=== PATIENT | female | born 1935 | race Caucasian/White ===

== ENCOUNTER → 2022-11-18 | Outpatient (CLI) | payer MEDICARE ==
--- NOTE | 2022-11-18 11:38 | BD ---
EXAMINATION TYPE: Axial Bone Density DATE OF EXAM: 11/18/2022 CLINICAL HISTORY: 87 years old Female. 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 Bone mineral density as measured about the Lumbar spine is: ----- L1-L4(G/cm2): 1.428 T Score Values are as follows: ----- L1: -0.1 ----- L2: 0.0 ----- L3: 3.8 ----- L4: 2.8 ----- L1-L4: 2.1 Z Score Values are as follows: ----- L1: 1.4 ----- L2: 1.5 ----- L3: 5.3 ----- L4: 4.3 ----- L1-L4: 3.5 Bone mineral density is her first bone density at [facility] Bone mineral density about the L Wrist (g/cm2): 0.531 T Score values are as follows: -----Dist. R+U: 0.1 -----Prox. R+U: -0.9 -----Radius total: -2.0 Z Score values are as follows: -----Dist. R+U: 3.5 -----Prox. R+U: 2.4 -----Radius total: 1.3 Bone mineral density first dexa study at [facility] FRAX%s: NO FRAX, HIPS NOT SCANNED, BILAT THRS IMPRESSION: Osteopenia (T Score between -2.5 and -1). There is slightly increased risk of fracture and the patient may be considered for treatment. Re-Screen 2-5 years. NOTE: T-SCORE=SD OF THE YOUNG ADULT MEAN.
--- NOTE | 2022-11-27 15:17 | MM ---
Reason for Exam: Screening (asymptomatic). Last mammogram was performed 2 year(s) and 0 month(s) ago. Patient History: Menarche at age 13. Prior Study Comparison: 11/01/2019 Bilateral Screening Mammogram, [facility]. 11/14/2020 Bilateral Screening Mammogram, [facility]. Tissue Density: There are scattered fibroglandular densities. Findings: Analyzed By CAD. Findings appears symmetrical and stable. No significant interval change is evident. Benign-appearing calcification is present bilaterally. No suspicious groups of microcalcifications, spiculated or lobular masses, architectural distortion or other secondary signs of malignancy are mammographically apparent. Overall Assessment: Benign, BI-RAD 2 Management: Screening Mammogram of both breasts in 1 year. A negative mammogram report should not preclude additional follow up of suspicious palpable abnormalities. Patient should continue monthly self breast exam. A clinical breast exam by your physician is recommended on an annual basis and results should be correlated with mammographic findings. Electronically signed and approved by: Justus Rivera D.O. Radiologis
== END | disposition home or self-care (01) ==
LOC: RADMAMWWP 09:32
PROVIDERS: ATTEND Family Medicine
DX: Z12.31 Encounter for screening mammogram for malignant neoplasm of breast (principal); M85.851 Other specified disorders of bone density and structure, right thigh; Z78.0 Asymptomatic menopausal state
CPT/HCPCS: 77063; 77067; 77080

== ENCOUNTER → 2023-12-17 | Outpatient (CLI) | payer MEDICARE ==
--- NOTE | 2023-12-18 14:21 | MM ---
Reason for Exam: Screening (asymptomatic). Last mammogram was performed 1 year(s) and 1 month(s) ago. Patient History: Menarche at age 13. Paternal aunt had breast cancer. Prior Study Comparison: 11/01/2019 Bilateral Screening Mammogram, [facility]. 11/14/2020 Bilateral Screening Mammogram, [facility]. 11/18/2022 Bilateral MG 3D screening mammo w/cad, [facility]. Tissue Density: There are scattered areas of fibroglandular density. Findings: Analyzed By CAD. There is no suspicious group of microcalcifications or new suspicious mass in either breast. Overall Assessment: Benign, BI-RAD 2 Management: Screening Mammogram of both breasts in 1 year. . Patient should continue monthly self-breast exams. A clinical breast exam by your physician is recommended on an annual basis. This exam should not preclude additional follow-up of suspicious palpable abnormalities. Note on Laura scores and lifetime risk: 1. A Laura score greater than 3% is considered moderate risk. If this is the case, consider specialist referral to assess eligibility for a risk reducing agent. 2. If overall lifetime risk for the development of breast cancer is 20% or higher, the patient may qualify for future screening with alternating mammogram and breast MRI. Electronically signed and approved by: Ronald Mullen M.D. Radiologis
== END | disposition home or self-care (01) ==
LOC: RADMAMWWP 13:09
PROVIDERS: ATTEND Family Medicine
DX: Z12.31 Encounter for screening mammogram for malignant neoplasm of breast
CPT/HCPCS: 77063; 77067